=== PATIENT | male | born 1975 | race Caucasian/White ===

== ENCOUNTER 2016-11-07 14:35 | Inpatient (IN) | payer OTHER ==
[2016-11-07 15:23] VITALS: BMI 23.8
--- NOTE | 2016-11-07 18:03 | HP ---
Admission ROS [facility] Chief Complaint: I WANT TO GO TO REHAB Allergies/Adverse Reactions: Allergies Allergy/AdvReac Type Severity Reaction Status Date / Time Fish Containing Products Allergy Severe Hives Verified 11/07/16 16:53 penicillin G Allergy Severe Hives Verified 11/07/16 16:53 History of Present Illness: 41 YEARS OLD MALE WITH LONG HISTORY OF MARIJUANA NICOTINE DEPENDENCE HAS ASTHMA DENIES MENTAL ILLNESS IS ADMITTED TO REHAB Exam Limitations: No Limitations - Ebola screening Have you traveled outside of the country in the last 21 days: No Have you had contact with anyone from an Ebola affected area: No Have you been sick,other than usual withdrawal symptoms: No Do you have a fever: No - Review of Systems Constitutional: Loss of Appetite, Unintentional Wgt. Loss, Unexplained wgt Loss EENT: reports: Hearing Loss (RIGHT EAR 1996), Dental Problems (MULTIPLE TEETH DECAY) Respiratory: reports: No Symptoms reported Cardiac: reports: No Symptoms Reported GI: reports: No Symptoms Reported : reports: No Symptoms Reported Musculoskeletal: reports: No Symptoms Reported Integumentary: reports: Dryness, Lesions (BOTH FEET TOES) Neuro: reports: No Symptoms reported Endocrine: reports: No Symptoms Reported Hematology: reports: No Symptoms Reported Psychiatric: reports: Judgement Intact, Mood/Affect Appropiate, Orientated x3 Other Systems: Reviewed and Negative Patient History - Patient Medical History Hx Anemia: No Hx Asthma: Yes Hx Chronic Obstructive Pulmonary Disease (COPD): No Hx Cancer: No Hx Cardiac Disorders: No Hx Congestive Heart Failure: No Hx Hypertension: No Hx Hypercholesterolemia: No Hx Pacemaker: No HX Cerebrovascular Accident: No Hx Seizures: No Hx Dementia: No Hx Diabetes: No Hx Gastrointestinal Disorders: No Hx Liver Disease: No Hx Genitourinary Disorders: No Hx Sexually Transmitted Disorders: No Hx Renal Disease (ESRD): No Hx Thyroid Disease: No Hx Human Immunodeficiency Virus (HIV): No Hx Hepatitis C: No Hx Depression: No Hx Suicide Attempt: No Hx Bipolar Disorder: No Hx Schizophrenia: No - Patient Surgical History Past Surgical History: No Hx Neurologic Surgery: No Hx Cataract Extraction: No Hx Cardiac Surgery: No Hx Lung Surgery: No Hx Breast Surgery: No Hx Breast Biopsy: No Hx Abdominal Surgery: No Hx Appendectomy: No Hx Cholecystectomy: No Hx Genitourinary Surgery: No Hx Orthopedic Surgery: No - PPD History Previous Implant?: Yes Documented Results: Negative w/o proof Implanted On Prior [facility] Admission?: No PPD to be Administered?: Yes - Smoking Cessation Smoking history: Current every day smoker Have you smoked in the past 12 months: Yes Aproximately how many cigarettes per day: 20 Cigars Per Day: 0 Hx Chewing Tobacco Use: No Initiated information on smoking cessation: Yes 'Breaking Loose' booklet given: 11/07/16 - Substance & Tx. History Hx Alcohol Use: No Hx Substance Use: Yes Substance Use Type: Cocaine, Marijuana Hx Substance Use Treatment: No - Substances Abused Marijuana Route: Smoking Frequency: 3-6 times per week Amount used: $10 Age of first use: 16 Date of Last Use: 10/12/16 Family Disease History - Family Disease History Family Disease History: Diabetes: Mother, Heart Disease: Father (), Brother (), Other: Father, Brother Admission Physical Exam [facility] - Vital Signs Vital Signs: Vital Signs - 24 hr 11/07/16 14:50 Temperature 97.5 F L Pulse Rate 79 Respiratory 20 Rate Blood Pressure 117/66 - Physical General Appearance: Yes: No Apparent Distress, Appropriately Dressed, Thin HEENTM: Yes: Hearing grossly Normal, Normal ENT Inspection, Normocephalic, Normal Voice Respiratory: Yes: Chest Non-Tender, Lungs Clear, Normal Breath Sounds, No Respiratory Distress, No Accessory Muscle Use Neck: Yes: Supple, Trachea in good position Breast: Yes: Breasts Symetrical Cardiology: Yes: Regular Rhythm, Regular Rate, S1, S2 Abdominal: Yes: Normal Bowel Sounds, Non Tender, Soft Genitourinary: Yes: Within Normal Limits Back: Yes: Normal Inspection Musculoskeletal: Yes: full range of Motion, Gait Steady Extremities: Yes: Normal Inspection, Normal Range of Motion, Non-Tender Neurological: Yes: Fully Oriented, Alert, Motor Strength 5/5, Normal Mood/Affect , Normal Response Integumentary: Yes: Dry, Warm Lymphatic: Yes: Within Normal Limits - Diagnostic (1) Cannabis dependence, uncomplicated Current Visit: Yes Status: Chronic (2) Methadone maintenance therapy patient Current Visit: Yes Status: Chronic Comment: 35 MG VERIFICATION PENDING (3) Nicotine dependence Current Visit: Yes Status: Acute Qualifiers: Nicotine product type: cigarettes Substance use status: in withdrawal Qualified Code(s): F17.213 - Nicotine dependence, cigarettes, with withdrawal (4) Asthma Current Visit: Yes Status: Chronic Qualifiers: Asthma severity: mild intermittent Asthma complication type: with status asthmaticus Qualified Code(s): J45.22 - Mild intermittent asthma with status asthmaticus (5) Weight loss Current Visit: Yes Status: Acute (6) Hard of hearing Current Visit: Yes Status: Chronic Qualifiers: Hearing loss type: conductive Laterality: right Cleared for Admission S - Detox or Rehab [facility] Level of Care: Observation Bed Detox Regimen/Protocol: Not Applicable Claeared for Rehab Admission: Yes [facility] Breath Alcohol Content Breath Alcohol Content: 0 Urine Drug Screen - Results Drug Screen Negative: No Urine Drug Screen Results: THC-Marijuana, OPI-Opiates, MTD-Methadone Inpatient Rehab Admission - Initial Determination Are CD services needed?: Yes Free of communicable disease: Yes Not in need of hospitalization: Yes - Rehab Admission Criteria Previous failed treatment: Yes Poor recovery environment: No Comorbidities: No Lacks judgement: No Patient is meeting Inpatient Rehab admission criteria:: Yes
[2016-11-07] MEDS ORDERED: ACETAMINOPHEN 325 MG TABLET (FP) PO PRN (18:12)
[2016-11-07] MEDS ORDERED: MAGNESIUM HYDROX 2400MG/30ML ORAL SUSPENSION 30 ML CUP PO PRN (18:12)
[2016-11-07] MEDS ORDERED: hydrOXYzine PAMOATE 50 MG CAPSULE (FP) PO PRN (18:12)
[2016-11-07] MEDS ORDERED: guaiFENesin/D-METHORPHAN HB 10 ML UNIT-DOSE CUPS PO PRN (18:12)
[2016-11-07] MEDS ORDERED: P-EPHED 60MG/TRIPROLIDI 2.5MG TABLET PO PRN (18:12)
[2016-11-07] MEDS ORDERED: IBUPROFEN 400 MG TABLET (FP) PO PRN (18:12)
[2016-11-07] MEDS ORDERED: MAGNESIUM CITRATE 300 ML BOTTLE PO PRN (18:12)
[2016-11-07] MEDS ORDERED: LOPERAMIDE HCL 2 MG CAPSULE PO PRN (18:12)
[2016-11-07] MEDS ORDERED: MAG HYDROX/AL HYDROX/SIMETH 30 ML UNIT-DOSE CUP PO PRN (18:12)
[2016-11-07] MEDS ORDERED: MENTHOL/PHENOL 1 EACH UD MM PRN (18:12)
[2016-11-07] MEDS ORDERED: ALBUTEROL SO4 6.7 GM HFA INHALER IH PRN (18:13)
[2016-11-07] MEDS ORDERED: TUBERCULIN PPD 5 TU/0.1ML VIAL ID ONE (19:20)
[2016-11-07] MEDS: CLOTRIMAZOLE 1% CREAM 15 GM TUBE TP SCH (21:55)
[2016-11-07] MEDS: THIAMINE HCL 100 MG TABLET (FP) PO SCH (21:55)
[2016-11-07] MEDS: MINERAL OIL/PETROLAT/WATER TOPICAL CREAM 113 GM JAR TP SCH (21:56)
[2016-11-08 00:44] LABS: URINE APPEARANCE SLCLOUDY; URINE BILIRUBIN NEGATIVE (NEGATIVE); URINE BLOOD NEGATIVE (NEGATIVE); URINE COLOR YELLOW; URINE GLUCOSE (UA) NEGATIVE (NEGATIVE); URINE KETONE NEGATIVE (NEGATIVE); URINE LEUK ESTERASE NEGATIVE (NEGATIVE); URINE NITRITE NEGATIVE (NEGATIVE); URINE PROTEIN NEGATIVE (NEGATIVE); URINE UROBILINOGEN NEGATIVE mg/dL (0.2-1.0)
[2016-11-08] MEDS ORDERED: METHADONE HCL 40 MG DISPERSABLE TABLET PO SCH (07:45)
[2016-11-08] MEDS ORDERED: METHADONE HCL 5 MG TABLET ONE (08:45)
[2016-11-08] MEDS ORDERED: METHADONE HCL 10 MG TABLET ONE (08:45)
[2016-11-08] MEDS: METHADONE 30 MG, METHADONE 5 MG PO SCH (09:00)
[2016-11-08] MEDS: PRENATAL VITAMINS W/ FOLIC ACID TABLET (FP) PO SCH (09:56)
[2016-11-08] MEDS: CLOTRIMAZOLE 1% CREAM 15 GM TUBE TP SCH ×2 (09:57→22:25)
[2016-11-08] MEDS: NICOTINE 21 MG/24 HOURS TOPICAL PATCH TD SCH (09:57)
--- NOTE | 2016-11-08 14:11 | PN ---
Psychiatric Progress Note Vital Signs: Vital Signs Period Temp Pulse Resp BP Sys/Cross Pulse Ox Last 24 Hr 97.5 F-97.8 F 64-79 18-20 105-117/66-73 Date of Session: 11/08/16 HPI: This is the first [facility] admission for this 41 years old male Current Medications: Active Medications Generic Name Dose Route Start Last Admin Trade Name Freq PRN Reason Stop Dose Admin Acetaminophen 650 mg 11/07/16 18:12 Tylenol - PO Q4H PRN PAIN Al Hydroxide/Mg Hydroxide 30 ml 11/07/16 18:12 Mylanta Oral Suspension - PO Q6H PRN DYSPEPSIA Albuterol Sulfate 2 puff 11/07/16 18:13 Ventolin Hfa Inhaler - IH Q4H PRN SHORT OF BREATH/WHEEZING Clotrimazole 1 applic 11/07/16 22:00 11/08/16 09:57 Lotrimin 1% Cream - TP Not Given BID IZZY Colloidal Oatmeal 1 applic 11/07/16 18:14 Aveeno Soap - TP DAILY PRN HYGEINE Diphenhydramine HCl 50 mg 11/07/16 18:12 Benadryl - PO HSMR1 PRN INSOMNIA Eucalyptus/Menthol/Phenol/Sorbitol 1 each 11/07/16 18:12 Cepastat Lozenge - MM Q4H PRN SORE THROAT Guaifenesin 10 ml 11/07/16 18:12 Robitussin Dm - PO Q6H PRN COUGH Hydroxyzine Pamoate 50 mg 11/07/16 18:12 Vistaril - PO Q4H PRN AGITATION Ibuprofen 400 mg 11/07/16 18:12 Motrin - PO Q6H PRN SEVERE PAIN Loperamide HCl 4 mg 11/07/16 18:12 Imodium - PO Q6H PRN DIARRHEA Magnesium Citrate 300 ml 11/07/16 18:12 Citroma - PO Q48H PRN CONSTIPATION Magnesium Hydroxide 30 ml 11/07/16 18:12 Milk Of Magnesia - PO DAILY PRN CONSTIPATION Methadone HCl 30 mg/ Methadone 35 mg 11/08/16 08:00 11/08/16 09:00 HCl 5 mg PO 35 mg DAILY@0600 [facility] Administration Multi-Ingredient Lotion 1 applic 11/07/16 22:00 11/07/16 21:56 Eucerin (Small Jar) - TP Not Given HS IZZY Nicotine 21 mg 11/08/16 10:00 11/08/16 09:57 Nicoderm Patch - TD Not Given DAILY IZZY Nicotine Polacrilex 4 mg 11/07/16 18:12 Nicorette Gum - BC Q2H PRN NICOTINE REPLACEMENT RX Multivit/Folic Acid/Iron 1 tab 11/08/16 10:00 11/08/16 09:56 Vitamins ([facility]) - PO 1 tab DAILY IZZY Administration Pseudoephedrine/Triprolidine 1 combo 11/07/16 18:12 Actifed - PO TID PRN NASAL CONGESTION Thiamine HCl 100 mg 11/07/16 22:00 11/07/16 21:55 Vitamin B1 - PO 100 mg HS IZZY Administration
[2016-11-08 14:15] LABS: MCH 29.7 pg (25.7-33.7); MCHC 32.5 g/dl (32.0-35.9); MEAN CELL VOLUME 91.4 fl (80-96); MEAN PLT VOLUME 9.6 fl (7.5-11.1); PLATELET COUNT 238 K/MM3 (134-434); RDW 14.1 % (11.9-15.9); WHITE BLOOD COUNT 8.3 K/mm3 (4.0-10.0)
--- NOTE | 2016-11-08 14:23 | HP ---
Psychiatrist Admission - Data Date of interview: 11/08/16 Admission source: [facility] Identifying data: This is the first [facility] admission for this 41 years old single male, Maintenance for [facility], homeless Medical History: Significant for bronchial asthma, hypertension. Patient is on methadone 35 mg/day. Smokes cigarettes 1ppd Psychiatric History: Denies history of previous psychiatric treatment Physical/Sexual Abuse/Trauma History: Denies history of emotional, physical or sexual abuse as well as DV relationship Additional Comment: Reports history of multiple arrests including 4-5 felony convictions. Reports being on parole till 2019 Vital Signs: Vital Signs - 24 hr 11/07/16 11/08/16 11/08/16 14:50 00:30 03:30 Temperature 97.5 F L Pulse Rate 79 Respiratory 20 18 18 Rate Blood Pressure 117/66 11/08/16 06:43 Temperature 97.8 F Pulse Rate 64 Respiratory 20 Rate Blood Pressure 105/73 Allergies/Adverse Reactions: Allergies Allergy/AdvReac Type Severity Reaction Status Date / Time Fish Containing Products Allergy Severe Hives Verified 11/07/16 16:53 penicillin G Allergy Severe Hives Verified 11/07/16 16:53 Date of last physical exam: 11/07/16 Concur with the findings of this exam: Yes - Substance Abuse/Tx History Hx Alcohol Use: No Hx Substance Use: Yes Substance Use Type: Marijuana (Started smoking marijuana at age 16, consumes $ 10 worth daily.Last smoked on 10/12/16) Hx Substance Use Treatment: Yes (Attends [facility]) - Admission Criteria Previous failed treatment: No Poor recovery environment: Yes Comorbidities: Yes Lacks judgement: Yes Mental Status Exam - Mental Status Exam Alert and Oriented to: Time, Place, Person Cognitive Function: Fair Patient Appearance: Well Groomed Mood: Happy Affect: Constricted Patient Behavior: Cooperative (superficially) Speech Pattern: Clear Voice Loudness: Normal Thought Process: Intact, Goal Oriented Thought Disorder: Not Present Hallucinations: Denies Suicidal Ideation: Denies Homicidal Ideation: Denies Insight/Judgement: Fair Sleep: Poorly Appetite: Good Muscle strength/Tone: Normal Gait/Station: Normal Psychiatric Findings - Problem List ([place] 1, 2,3) (1) Cannabis dependence Current Visit: Yes Status: Acute (2) Opioid dependence on agonist therapy Current Visit: Yes Status: Acute (3) Nicotine dependence Current Visit: Yes Status: Acute (4) Substance-induced sleep disorder Current Visit: Yes Status: Acute (5) Asthma Current Visit: Yes Status: Chronic Qualifiers: Asthma severity: mild intermittent Asthma complication type: with status asthmaticus Qualified Code(s): J45.22 - Mild intermittent asthma with status asthmaticus (6) Hard of hearing Current Visit: Yes Status: Chronic Qualifiers: Hearing loss type: conductive Laterality: right - Initial Treatment Plan Initial Treatment Plan: Monitor progress
[2016-11-08 14:29] LABS: CALCIUM 8.7 mg/dL (8.5-10.1)
[2016-11-08 14:40] LABS: ALBUMIN 3.2 g/dl (3.4-5.0); ALK PHOS 99 U/L (45-117); ANION GAP 9 (8-16); BILIRUBIN,TOTAL 0.3 mg/dL (0.2-1.0); CO2 27 mmol/L (21-32); CREATININE 0.6 mg/dL (0.7-1.3); GLUCOSE,RANDOM 116 mg/dL (74-106); SGOT/AST 14 U/L (15-37); SGPT/ALT 52 U/L (12-78); TOT PROT 6.1 g/dl (6.4-8.2)
[2016-11-08] MEDS ORDERED: PT OWN MED DRAWER 7, Y5N ONE (22:09)
[2016-11-08] MEDS: MINERAL OIL/PETROLAT/WATER TOPICAL CREAM 113 GM JAR TP SCH (22:25)
[2016-11-08] MEDS: THIAMINE HCL 100 MG TABLET (FP) PO SCH (22:26)
[2016-11-09] MEDS ORDERED: METHADONE HCL 10 MG TABLET ONE (03:48)
[2016-11-09] MEDS ORDERED: METHADONE HCL 5 MG TABLET ONE (03:49)
[2016-11-09] MEDS: METHADONE 30 MG, METHADONE 5 MG PO SCH (06:19)
[2016-11-09] MEDS: PRENATAL VITAMINS W/ FOLIC ACID TABLET (FP) PO SCH (09:46)
[2016-11-09] MEDS: CLOTRIMAZOLE 1% CREAM 15 GM TUBE TP SCH ×2 (09:46→21:37)
[2016-11-09] MEDS: NICOTINE 21 MG/24 HOURS TOPICAL PATCH TD SCH (09:47)
[2016-11-09] MEDS: NICOTINE POLACRILEX 4 MG GUM BC PRN (09:48)
[2016-11-09] MEDS: THIAMINE HCL 100 MG TABLET (FP) PO SCH (21:36)
[2016-11-09] MEDS: MINERAL OIL/PETROLAT/WATER TOPICAL CREAM 113 GM JAR TP SCH (21:38)
[2016-11-10] MEDS ORDERED: METHADONE HCL 10 MG TABLET ONE (04:14)
[2016-11-10] MEDS ORDERED: METHADONE HCL 5 MG TABLET ONE (04:15)
[2016-11-10] MEDS: METHADONE 30 MG, METHADONE 5 MG PO SCH (06:31)
[2016-11-10] MEDS ORDERED: PT OWN MED DRAWER 7, Y5N ONE (09:29)
[2016-11-10] MEDS: CLOTRIMAZOLE 1% CREAM 15 GM TUBE TP SCH ×2 (09:38→21:38)
[2016-11-10] MEDS: PRENATAL VITAMINS W/ FOLIC ACID TABLET (FP) PO SCH (09:39)
[2016-11-10] MEDS: NICOTINE 21 MG/24 HOURS TOPICAL PATCH TD SCH (09:39)
[2016-11-10] MEDS: THIAMINE HCL 100 MG TABLET (FP) PO SCH (21:03)
[2016-11-10] MEDS: MINERAL OIL/PETROLAT/WATER TOPICAL CREAM 113 GM JAR TP SCH (21:38)
[2016-11-11] MEDS ORDERED: METHADONE HCL 10 MG TABLET ONE (03:15)
[2016-11-11] MEDS ORDERED: METHADONE HCL 5 MG TABLET ONE (03:15)
[2016-11-11] MEDS: METHADONE 30 MG, METHADONE 5 MG PO SCH (06:14)
[2016-11-11] MEDS: CLOTRIMAZOLE 1% CREAM 15 GM TUBE TP SCH ×2 (09:38→21:51)
[2016-11-11] MEDS: PRENATAL VITAMINS W/ FOLIC ACID TABLET (FP) PO SCH (09:38)
[2016-11-11] MEDS: NICOTINE POLACRILEX 4 MG GUM BC PRN (09:38)
[2016-11-11] MEDS: NICOTINE 21 MG/24 HOURS TOPICAL PATCH TD SCH (09:38)
--- NOTE | 2016-11-11 12:13 | PN ---
[facility] Progress Note Note: c/o ppain left ear, seation with methadone, allergy to deodaratn on floor o/e good light reflex bilaterally, no erythema or infection noted either side a/p: allergies - claritin, naprsoyn for pain, flonase, decrease methadone to 30mg dialy. can use unopened deodarant downstairs in security nursing notified
[2016-11-11] MEDS: PANTOPRAZOLE 40 MG TABLET (FP) PO SCH (14:24)
[2016-11-11] MEDS: NAPROXEN 500 MG TABLET (FP) PO SCH ×2 (14:25→21:51)
[2016-11-11] MEDS: LORATADINE 10 MG TABLET PO SCH (14:25)
[2016-11-11] MEDS: COLLOIDAL OATMEAL 1 BAR EACH TP PRN (14:26)
[2016-11-11] MEDS: FLUTICASONE PROP 0.05% 16 GM NASAL SPRAY NS SCH (15:40)
--- NOTE | 2016-11-11 17:04 | EKG ---
Test Reason : Blood Pressure : / mmHG Vent. Rate : 087 BPM Atrial Rate : 087 BPM P-R Int : 170 ms QRS Dur : 106 ms QT Int : 382 ms P-R-T Axes : 079 071 043 degrees QTc Int : 459 ms NORMAL SINUS RHYTHM INCOMPLETE RIGHT BUNDLE BRANCH BLOCK BORDERLINE ECG NO PREVIOUS ECGS AVAILABLE Confirmed by VICKI PETTIT, STUART ([id number]) on 11/11/2016 5:04:08 PM Referred By: Denver Ocasio Confirmed By:STUART COHEN MD
--- NOTE | 2016-11-11 17:04 | EKG ---
Test Reason : Blood Pressure : / mmHG Vent. Rate : 075 BPM Atrial Rate : 075 BPM P-R Int : 178 ms QRS Dur : 100 ms QT Int : 374 ms P-R-T Axes : 079 077 049 degrees QTc Int : 417 ms NORMAL SINUS RHYTHM NORMAL ECG WHEN COMPARED WITH ECG OF 07-NOV-2016 21:43, NO SIGNIFICANT CHANGE WAS FOUND Confirmed by STUART COHEN MD ([id number]) on 11/11/2016 5:03:38 PM Referred By: Denver Ocasio Confirmed By:STUART COHEN MD
[2016-11-11] MEDS: THIAMINE HCL 100 MG TABLET (FP) PO SCH (21:50)
[2016-11-11] MEDS: MINERAL OIL/PETROLAT/WATER TOPICAL CREAM 113 GM JAR TP SCH (21:51)
[2016-11-12] MEDS: METHADONE HCL 10 MG TABLET PO SCH (07:04)
[2016-11-12] MEDS: PRENATAL VITAMINS W/ FOLIC ACID TABLET (FP) PO SCH (09:42)
[2016-11-12] MEDS: NAPROXEN 500 MG TABLET (FP) PO SCH ×2 (09:42→22:36)
[2016-11-12] MEDS: LORATADINE 10 MG TABLET PO SCH (09:42)
[2016-11-12] MEDS: NICOTINE 21 MG/24 HOURS TOPICAL PATCH TD SCH (09:42)
[2016-11-12] MEDS: PANTOPRAZOLE 40 MG TABLET (FP) PO SCH (09:42)
[2016-11-12] MEDS: FLUTICASONE PROP 0.05% 16 GM NASAL SPRAY NS SCH (09:44)
[2016-11-12] MEDS: CLOTRIMAZOLE 1% CREAM 15 GM TUBE TP SCH ×2 (09:44→22:36)
[2016-11-12] MEDS ORDERED: PT OWN MED DRAWER 7, Y5N ONE (10:25)
[2016-11-12] MEDS: MINERAL OIL/PETROLAT/WATER TOPICAL CREAM 113 GM JAR TP SCH (22:35)
[2016-11-12] MEDS: THIAMINE HCL 100 MG TABLET (FP) PO SCH (22:36)
[2016-11-13] MEDS: METHADONE HCL 10 MG TABLET PO SCH (06:07)
[2016-11-13] MEDS: CLOTRIMAZOLE 1% CREAM 15 GM TUBE TP SCH ×2 (09:42→21:28)
[2016-11-13] MEDS: LORATADINE 10 MG TABLET PO SCH (09:42)
[2016-11-13] MEDS: PRENATAL VITAMINS W/ FOLIC ACID TABLET (FP) PO SCH (09:42)
[2016-11-13] MEDS: PANTOPRAZOLE 40 MG TABLET (FP) PO SCH (09:42)
[2016-11-13] MEDS: NICOTINE 21 MG/24 HOURS TOPICAL PATCH TD SCH (09:43)
[2016-11-13] MEDS: NAPROXEN 500 MG TABLET (FP) PO SCH ×2 (09:43→21:29)
[2016-11-13] MEDS: FLUTICASONE PROP 0.05% 16 GM NASAL SPRAY NS SCH (09:43)
[2016-11-13] MEDS: MINERAL OIL/PETROLAT/WATER TOPICAL CREAM 113 GM JAR TP SCH (21:28)
[2016-11-13] MEDS: THIAMINE HCL 100 MG TABLET (FP) PO SCH (21:29)
[2016-11-14] MEDS: METHADONE HCL 10 MG TABLET PO SCH (06:40)
[2016-11-14] MEDS: COLLOIDAL OATMEAL 1 BAR EACH TP PRN (08:36)
[2016-11-14] MEDS: NAPROXEN 500 MG TABLET (FP) PO SCH ×2 (09:36→21:26)
[2016-11-14] MEDS: CLOTRIMAZOLE 1% CREAM 15 GM TUBE TP SCH ×2 (09:36→21:26)
[2016-11-14] MEDS: PRENATAL VITAMINS W/ FOLIC ACID TABLET (FP) PO SCH (09:36)
[2016-11-14] MEDS: LORATADINE 10 MG TABLET PO SCH (09:36)
[2016-11-14] MEDS: NICOTINE 21 MG/24 HOURS TOPICAL PATCH TD SCH (09:37)
[2016-11-14] MEDS: FLUTICASONE PROP 0.05% 16 GM NASAL SPRAY NS SCH (09:37)
[2016-11-14] MEDS: PANTOPRAZOLE 40 MG TABLET (FP) PO SCH (10:35)
[2016-11-14] MEDS ORDERED: PT OWN MED DRAWER 7, Y5N ONE (19:44)
[2016-11-14] MEDS: MINERAL OIL/PETROLAT/WATER TOPICAL CREAM 113 GM JAR TP SCH (21:26)
[2016-11-14] MEDS: THIAMINE HCL 100 MG TABLET (FP) PO SCH (21:26)
[2016-11-15] MEDS: METHADONE HCL 10 MG TABLET PO SCH (06:35)
[2016-11-15] MEDS: NICOTINE POLACRILEX 4 MG GUM BC PRN (08:38)
[2016-11-15] MEDS: PRENATAL VITAMINS W/ FOLIC ACID TABLET (FP) PO SCH (09:28)
[2016-11-15] MEDS: LORATADINE 10 MG TABLET PO SCH (09:28)
[2016-11-15] MEDS: NAPROXEN 500 MG TABLET (FP) PO SCH ×2 (09:29→22:10)
[2016-11-15] MEDS: PANTOPRAZOLE 40 MG TABLET (FP) PO SCH (09:29)
[2016-11-15] MEDS ORDERED: PT OWN MED DRAWER 7, Y5N ONE (09:31)
[2016-11-15] MEDS: NICOTINE 21 MG/24 HOURS TOPICAL PATCH TD SCH (09:31)
[2016-11-15] MEDS: FLUTICASONE PROP 0.05% 16 GM NASAL SPRAY NS SCH (09:31)
[2016-11-15] MEDS: CLOTRIMAZOLE 1% CREAM 15 GM TUBE TP SCH ×2 (09:31→22:10)
[2016-11-15] MEDS: SELENIUM SULFIDE 2.5% LOTION 4 OZ. TP SCH (19:14)
[2016-11-15] MEDS: MINERAL OIL/PETROLAT/WATER TOPICAL CREAM 113 GM JAR TP SCH (22:10)
[2016-11-15] MEDS: THIAMINE HCL 100 MG TABLET (FP) PO SCH (22:10)
[2016-11-16] MEDS: METHADONE HCL 10 MG TABLET PO SCH (06:38)
[2016-11-16] MEDS: PRENATAL VITAMINS W/ FOLIC ACID TABLET (FP) PO SCH (09:32)
[2016-11-16] MEDS: LORATADINE 10 MG TABLET PO SCH (09:32)
[2016-11-16] MEDS: CLOTRIMAZOLE 1% CREAM 15 GM TUBE TP SCH ×2 (09:40→22:45)
[2016-11-16] MEDS: FLUTICASONE PROP 0.05% 16 GM NASAL SPRAY NS SCH (09:40)
[2016-11-16] MEDS: NAPROXEN 500 MG TABLET (FP) PO SCH ×2 (09:41→22:46)
[2016-11-16] MEDS: NICOTINE 21 MG/24 HOURS TOPICAL PATCH TD SCH (09:41)
[2016-11-16] MEDS: SELENIUM SULFIDE 2.5% LOTION 4 OZ. TP SCH (10:10)
[2016-11-16] MEDS: PANTOPRAZOLE 40 MG TABLET (FP) PO SCH (10:10)
[2016-11-16] MEDS: MINERAL OIL/PETROLAT/WATER TOPICAL CREAM 113 GM JAR TP SCH (22:45)
[2016-11-16] MEDS: THIAMINE HCL 100 MG TABLET (FP) PO SCH (22:46)
[2016-11-17] MEDS: METHADONE HCL 10 MG TABLET PO SCH (06:14)
[2016-11-17] MEDS: LORATADINE 10 MG TABLET PO SCH (09:34)
[2016-11-17] MEDS: PRENATAL VITAMINS W/ FOLIC ACID TABLET (FP) PO SCH (09:34)
[2016-11-17] MEDS: SELENIUM SULFIDE 2.5% LOTION 4 OZ. TP SCH (09:35)
[2016-11-17] MEDS: FLUTICASONE PROP 0.05% 16 GM NASAL SPRAY NS SCH (09:35)
[2016-11-17] MEDS: PANTOPRAZOLE 40 MG TABLET (FP) PO SCH (09:35)
[2016-11-17] MEDS: NICOTINE 21 MG/24 HOURS TOPICAL PATCH TD SCH (09:35)
[2016-11-17] MEDS: CLOTRIMAZOLE 1% CREAM 15 GM TUBE TP SCH ×2 (09:35→22:40)
[2016-11-17] MEDS: NAPROXEN 500 MG TABLET (FP) PO SCH ×2 (09:35→21:58)
[2016-11-17] MEDS: MINERAL OIL/PETROLAT/WATER TOPICAL CREAM 113 GM JAR TP SCH (21:58)
[2016-11-17] MEDS: THIAMINE HCL 100 MG TABLET (FP) PO SCH (21:58)
[2016-11-18] MEDS: METHADONE HCL 10 MG TABLET PO SCH (07:28)
[2016-11-18] MEDS: PRENATAL VITAMINS W/ FOLIC ACID TABLET (FP) PO SCH (09:37)
[2016-11-18] MEDS: CLOTRIMAZOLE 1% CREAM 15 GM TUBE TP SCH ×2 (09:39→21:35)
[2016-11-18] MEDS: SELENIUM SULFIDE 2.5% LOTION 4 OZ. TP SCH (09:39)
[2016-11-18] MEDS ORDERED: PT OWN MED DRAWER 7, Y5N ONE (09:40)
[2016-11-18] MEDS: NICOTINE 21 MG/24 HOURS TOPICAL PATCH TD SCH (09:41)
[2016-11-18] MEDS: LORATADINE 10 MG TABLET PO SCH (09:41)
[2016-11-18] MEDS: NAPROXEN 500 MG TABLET (FP) PO SCH ×2 (09:41→21:35)
[2016-11-18] MEDS: FLUTICASONE PROP 0.05% 16 GM NASAL SPRAY NS SCH (09:41)
[2016-11-18] MEDS: PANTOPRAZOLE 40 MG TABLET (FP) PO SCH (09:41)
[2016-11-18] MEDS: THIAMINE HCL 100 MG TABLET (FP) PO SCH (21:35)
[2016-11-18] MEDS: diphenhydrAMINE HCL 50 MG CAPSULE PO PRN (21:35)
[2016-11-18] MEDS: MINERAL OIL/PETROLAT/WATER TOPICAL CREAM 113 GM JAR TP SCH (21:35)
[2016-11-19] MEDS: METHADONE HCL 10 MG TABLET PO SCH (06:23)
[2016-11-19] MEDS: PRENATAL VITAMINS W/ FOLIC ACID TABLET (FP) PO SCH (09:30)
[2016-11-19] MEDS: CLOTRIMAZOLE 1% CREAM 15 GM TUBE TP SCH ×2 (09:31→21:35)
[2016-11-19] MEDS ORDERED: PT OWN MED DRAWER 7, Y5N ONE (09:31)
[2016-11-19] MEDS: FLUTICASONE PROP 0.05% 16 GM NASAL SPRAY NS SCH (09:31)
[2016-11-19] MEDS: LORATADINE 10 MG TABLET PO SCH (09:31)
[2016-11-19] MEDS: PANTOPRAZOLE 40 MG TABLET (FP) PO SCH (09:32)
[2016-11-19] MEDS: NICOTINE 21 MG/24 HOURS TOPICAL PATCH TD SCH (09:32)
[2016-11-19] MEDS: SELENIUM SULFIDE 2.5% LOTION 4 OZ. TP SCH (09:32)
[2016-11-19] MEDS: NAPROXEN 500 MG TABLET (FP) PO SCH ×2 (09:32→21:37)
[2016-11-19] MEDS: diphenhydrAMINE HCL 50 MG CAPSULE PO PRN (21:34)
[2016-11-19] MEDS: THIAMINE HCL 100 MG TABLET (FP) PO SCH (21:34)
[2016-11-19] MEDS: MINERAL OIL/PETROLAT/WATER TOPICAL CREAM 113 GM JAR TP SCH (21:35)
[2016-11-20] MEDS: METHADONE HCL 10 MG TABLET PO SCH (06:18)
[2016-11-20] MEDS: CLOTRIMAZOLE 1% CREAM 15 GM TUBE TP SCH ×2 (09:56→21:23)
[2016-11-20] MEDS: PRENATAL VITAMINS W/ FOLIC ACID TABLET (FP) PO SCH (09:57)
[2016-11-20] MEDS: NAPROXEN 500 MG TABLET (FP) PO SCH ×2 (09:59→21:24)
[2016-11-20] MEDS: NICOTINE 21 MG/24 HOURS TOPICAL PATCH TD SCH (09:59)
[2016-11-20] MEDS: FLUTICASONE PROP 0.05% 16 GM NASAL SPRAY NS SCH (10:01)
[2016-11-20] MEDS: NICOTINE POLACRILEX 4 MG GUM BC PRN (10:01)
[2016-11-20] MEDS: PANTOPRAZOLE 40 MG TABLET (FP) PO SCH (10:01)
[2016-11-20] MEDS: SELENIUM SULFIDE 2.5% LOTION 4 OZ. TP SCH (10:02)
[2016-11-20] MEDS: LORATADINE 10 MG TABLET PO SCH (10:02)
[2016-11-20] MEDS: THIAMINE HCL 100 MG TABLET (FP) PO SCH (21:23)
[2016-11-20] MEDS: diphenhydrAMINE HCL 50 MG CAPSULE PO PRN (21:23)
[2016-11-20] MEDS: MINERAL OIL/PETROLAT/WATER TOPICAL CREAM 113 GM JAR TP SCH (21:23)
[2016-11-21] MEDS: METHADONE HCL 10 MG TABLET PO SCH (06:16)
[2016-11-21] MEDS: CLOTRIMAZOLE 1% CREAM 15 GM TUBE TP SCH ×2 (09:33→21:18)
[2016-11-21] MEDS: PRENATAL VITAMINS W/ FOLIC ACID TABLET (FP) PO SCH (09:33)
[2016-11-21] MEDS: FLUTICASONE PROP 0.05% 16 GM NASAL SPRAY NS SCH (09:34)
[2016-11-21] MEDS: NAPROXEN 500 MG TABLET (FP) PO SCH ×2 (09:34→21:42)
[2016-11-21] MEDS: SELENIUM SULFIDE 2.5% LOTION 4 OZ. TP SCH (09:34)
[2016-11-21] MEDS: NICOTINE 21 MG/24 HOURS TOPICAL PATCH TD SCH (09:34)
[2016-11-21] MEDS: LORATADINE 10 MG TABLET PO SCH (09:34)
[2016-11-21] MEDS: PANTOPRAZOLE 40 MG TABLET (FP) PO SCH (09:34)
--- NOTE | 2016-11-21 09:36 | PN ---
Psychiatric Progress Note Vital Signs: Vital Signs Period Temp Pulse Resp BP Sys/Cross Pulse Ox Last 24 Hr 97.9 F 69 18-18 115/71 Date of Session: 11/21/16 Chief Complaint:: Discharge Note HPI: Patient addressing Cannabis Dependence comorbid with Opoid Dependence on Agonist Therapy and Substance-Induced Sleep disorder ROS: Asthma, Hard of hearing Current Medications: Active Medications Generic Name Dose Route Start Last Admin Trade Name Freq PRN Reason Stop Dose Admin Acetaminophen 650 mg 11/07/16 18:12 Tylenol - PO Q4H PRN PAIN Al Hydroxide/Mg Hydroxide 30 ml 11/07/16 18:12 Mylanta Oral Suspension - PO Q6H PRN DYSPEPSIA Albuterol Sulfate 2 puff 11/07/16 18:13 11/17/16 09:34 Ventolin Hfa Inhaler - IH 2 puff Q4H PRN Administration SHORT OF BREATH/WHEEZING Clotrimazole 1 applic 11/07/16 22:00 11/20/16 21:23 Lotrimin 1% Cream - TP 1 applic BID IZZY Administration Colloidal Oatmeal 1 applic 11/07/16 18:14 11/14/16 08:36 Aveeno Soap - TP 1 bar DAILY PRN Administration HYGEINE Diphenhydramine HCl 50 mg 11/07/16 18:12 11/20/16 21:23 Benadryl - PO 50 mg HSMR1 PRN Administration INSOMNIA Eucalyptus/Menthol/Phenol/Sorbitol 1 each 11/07/16 18:12 Cepastat Lozenge - MM Q4H PRN SORE THROAT Fluticasone Propionate 2 spray 11/11/16 12:15 11/20/16 10:01 Flonase - NS Not Given DAILY IZZY Guaifenesin 10 ml 11/07/16 18:12 11/20/16 12:16 Robitussin Dm - PO 10 ml Q6H PRN Administration COUGH Hydroxyzine Pamoate 50 mg 11/07/16 18:12 Vistaril - PO Q4H PRN AGITATION Loperamide HCl 4 mg 11/07/16 18:12 Imodium - PO Q6H PRN DIARRHEA Loratadine 10 mg 11/11/16 12:15 11/20/16 10:02 Claritin - PO Not Given DAILY IZZY Magnesium Citrate 300 ml 11/07/16 18:12 Citroma - PO Q48H PRN CONSTIPATION Magnesium Hydroxide 30 ml 11/07/16 18:12 Milk Of Magnesia - PO DAILY PRN CONSTIPATION Methadone HCl 30 mg 11/18/16 08:00 11/21/16 06:16 Dolophine - PO 30 mg DAILY@0600 IZZY Administration Multi-Ingredient Lotion 1 applic 11/07/16 22:00 11/20/16 21:23 Eucerin (Small Jar) - TP Not Given HS IZZY Naproxen 500 mg 11/11/16 12:58 11/20/16 21:24 Naprosyn - PO Not Given BID IZZY Nicotine 21 mg 11/08/16 10:00 11/20/16 09:59 Nicoderm Patch - TD Not Given DAILY IZZY Nicotine Polacrilex 4 mg 11/07/16 18:12 11/20/16 10:01 Nicorette Gum - BC 4 mg Q2H PRN Administration NICOTINE REPLACEMENT RX Pantoprazole Sodium 40 mg 11/11/16 12:15 11/20/16 10:01 Protonix - PO Not Given DAILY IZZY Multivit/Folic Acid/Iron 1 tab 11/08/16 10:00 11/20/16 09:57 Vitamins ([facility]) - PO 1 tab DAILY IZZY Administration Selenium Sulfide 1 applic 11/15/16 14:45 11/20/16 10:02 Selsun 2.5% Lotion - TP 11/22/16 14:44 Not Given DAILY IZZY Thiamine HCl 100 mg 11/07/16 22:00 11/20/16 21:23 Vitamin B1 - PO 100 mg HS IZZY Administration Current Side Effect: No Lab tests ordered: Yes Lab tests reviewed: Yes Provider note:: Patient will complete this program on 11/22/16. He has met his treatment goals and minerva continue to address his issues in outpatient treatment at [facility].Told television writer that from his participation in this program, he has learned that in order to stay clean , he has to be patient, stay focus and go to his outpatient program. He is stable for discharge on 11/22/16 Total face to face time:: 35 Mental Status Exam - Mental Status Exam Alert and Oriented to: Time, Place, Person Cognitive Function: Fair Patient Appearance: Well Groomed Mood: Hopeful, Euthymic Affect: Appropriate Patient Behavior: Cooperative Speech Pattern: Clear Voice Loudness: Normal Thought Process: Intact, Goal Oriented Thought Disorder: Not Present Hallucinations: Denies Suicidal Ideation: Denies Homicidal Ideation: Denies Insight/Judgement: Fair Sleep: Fair Appetite: Good Muscle strength/Tone: Normal Gait/Station: Normal Psychiatric Treatment Plan - Problem List (1) Cannabis dependence Current Visit: Yes (2) Opioid dependence on agonist therapy Current Visit: Yes (3) Nicotine dependence Current Visit: Yes (4) Substance-induced sleep disorder Current Visit: Yes (5) Asthma Current Visit: Yes Qualifiers: Asthma severity: mild intermittent Asthma complication type: with status asthmaticus Qualified Code(s): J45.22 - Mild intermittent asthma with status asthmaticus (6) Hard of hearing Current Visit: Yes Qualifiers: Hearing loss type: conductive Laterality: right Initial treatment plan: Patient will be discharged tomorrow and referred to [facility] for outpatient treatment
[2016-11-21] MEDS: THIAMINE HCL 100 MG TABLET (FP) PO SCH (21:18)
[2016-11-21] MEDS: diphenhydrAMINE HCL 50 MG CAPSULE PO PRN (21:18)
[2016-11-21] MEDS: MINERAL OIL/PETROLAT/WATER TOPICAL CREAM 113 GM JAR TP SCH (21:18)
[2016-11-22] MEDS: METHADONE HCL 10 MG TABLET PO SCH (06:25)
[2016-11-22 06:40] VITALS: BP 124/78; PULSE 72; TEMP 97.3
== END 2016-11-22 07:15 | disposition home or self-care (01) | DRG 772 ==
LOC: YASAS 14:35 → Y3W 17:46
PROVIDERS: ADMIT Psychiatry & Neurology Psychiatry; ATTEND Psychiatry & Neurology Psychiatry
PROC: HZ42ZZZ Group Counseling for Substance Abuse Treatment, Cognitive-Behavioral (ICD-10-PCS; principal; 2016-11-07)
DX: F11.20 Opioid dependence, uncomplicated (principal); F12.20 Cannabis dependence, uncomplicated; F17.210 Nicotine dependence, cigarettes, uncomplicated; F19.282 Other psychoactive substance dependence with psychoactive substance-induced sleep disorder; J45.22 Mild intermittent asthma with status asthmaticus; H90.2 Conductive hearing loss, unspecified; R63.4 Abnormal weight loss; Z68.23 Body mass index [BMI] 23.0-23.9, adult
CPT/HCPCS: 36415; 80053; 81003; 85027; 86593; 93005; 93010